=== PATIENT | female | born 1980 | race African-American/Black ===

== ENCOUNTER 2022-06-24 20:40 | Emergency (ER) | payer OTHER ==
[2022-06-24 21:03] VITALS: BP 127/94; PULSE 70; RESP 16; TEMP 97.8; BMI 30.7
[2022-06-24] MEDS ORDERED: SODIUM CHLORIDE 1,000 ML IV STA (21:17)
[2022-06-24] MEDS ORDERED: ONDANSETRON 4 MG/2 ML VIAL IVPUSH ONE (21:17)
[2022-06-24] MEDS ORDERED: ONDANSETRON 4 MG/2 ML VIAL ONE (21:20)
[2022-06-24 21:36] LABS: HEMATOCRIT 42.7 % (32.4-45.2); HEMOGLOBIN 14.9 G/dL (10.7-15.3); MCHC 34.9 g/dl (32.0-36.0); MEAN PLT VOLUME 7.2 fl (7.5-11.1); RBC 5.14 10^6/uL (3.60-5.2); RDW 14.9 % (11.6-15.6); WHITE BLOOD COUNT 8.7 10^3/uL (4.0-10.8)
[2022-06-24 21:42] LABS: ALBUMIN 4.3 g/dl (3.4-5.0); BILIRUBIN,TOTAL 0.7 mg/dl (0.2-1); CALCIUM 9.3 mg/dl (8.5-10); CREATININE 0.8 mg/dl (0.55-1.3); TOT PROT 8.3 g/dl (6.4-8.2)
[2022-06-24 21:49] LABS: PLATELET ESTIMATE ADEQUATE
== END 2022-06-24 23:00 | disposition home or self-care (01) ==
LOC: FER 20:40
PROC: 3E033GC Introduction of Other Therapeutic Substance into Peripheral Vein, Percutaneous Approach (ICD-10-PCS; principal; 2022-06-24)
PROC: 3E033GC Introduction of Other Therapeutic Substance into Peripheral Vein, Percutaneous Approach (ICD-10-PCS; 2022-06-24)
DX: K52.9 Noninfective gastroenteritis and colitis, unspecified (principal); R11.2 Nausea with vomiting, unspecified; K04.7 Periapical abscess without sinus
CPT/HCPCS: 36415; 80053; 85027; 99284-25